=== PATIENT | female | born 1940 | race Hispanic/Latino ===

== ENCOUNTER 2017-03-30 12:57 | Outpatient (CLI) | payer MEDICARE ==
--- NOTE | 2017-03-30 21:48 | XRay Report ---
FINAL REPORT EXAM: XR KNEE BILAT 4+V HISTORY: BILATERAL KNEE PAIN TECHNIQUE: Four views of the bilateral knees, 8 views total PRIORS: None. FINDINGS: Right knee: The bones are mildly demineralized. There is severe narrowing of the medial joint with associated prominent osteophyte formation. There is mild narrowing of the lateral joint with mild osteophyte formation. There is osteophyte formation of the patellofemoral joint. There is no evidence of fracture or subluxation. There beaking of the tibial spines. The soft tissues are unremarkable. Left knee: The bones are mildly demineralized. There is severe narrowing of the medial joint with associated prominent osteophyte formation. There is mild narrowing of the lateral joint with mild osteophyte formation. There is prominent osteophyte formation of the patellofemoral joint. There is no evidence of fracture or subluxation. There beaking of the tibial spines. The soft tissues are unremarkable. 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
== END 2017-03-30 12:58 | disposition home or self-care (01) ==
LOC: SPVIMAG 12:57
PROVIDERS: ATTEND Orthopaedic Surgery Sports Medicine
DX: M17.0 Bilateral primary osteoarthritis of knee (principal)